=== PATIENT | male | born 1960 | race Caucasian/White ===

== ENCOUNTER → 2021-09-14 | Emergency (ER) | payer OTHER ==
[~2021-09-14] VITALS: Ht 185.4 cm; Wt 113.4 kg
[~2021-09-14] MED LIST: IBU800 MG PO; ZOFRAN ODT 4 MG4 MG SL
== END | disposition home or self-care (01) ==
LOC: ER1 22:14
DX: U07.1 COVID-19 (principal); Z23 Encounter for immunization
CPT/HCPCS: 71045; 96374; 96375; 99285; J1885; J2405; M0245